=== PATIENT | female | born 1925 | race Caucasian/White ===

== ENCOUNTER 2016-10-23 13:03 | Emergency (ER) | payer MEDICARE, BC ==
[2010-07-23 14:01] VITALS: BMI 18.6
[2016-10-23 14:36] LABS: BASOPHILS 0.6 % (0-2); EOSINOPHILS 1.7 % (0-7); HEMOGLOBIN 13.6 g/dL (12-16); IMMATURE GRANULOCYTES 0.3 % (0-5); LYMPHOCYTES 15.4 % (15-50); MCH 29.4 pg (26.0-34.0); MCHC 31.6 g/dL (31.0-37.0); MCV 93.1 fL (80.0-100.0); MEAN PLATELET VOLUME 9.8 fL (7.4-10.4); MONOCYTES 12.6 % (2-11); NEUTROPHILS 69.4 % (40-80); RBC 4.62 10x6/uL (4.00-5.40); RDW 14.1 % (11.5-14.5); WBC 3.6 10x3/uL (4.8-10.8)
[2016-10-23 14:37] LABS: PLATELET COUNT 195 10x3/uL (130-400)
[2016-10-23 14:52] LABS: ALBUMIN 3.5 g/dL (3.4-5.0); ANION GAP 13.1 mmol/L (8-16); BILIRUBIN - TOTAL 0.4 mg/dL (0.2-1.3); CALCIUM 9.5 mg/dL (8.5-10.1); CARBON DIOXIDE 25.6 mmol/L (21.0-32.0); CREATININE - SERUM 1.3 mg/dL (0.6-1.3); POTASSIUM - SERUM 3.7 mmol/L (3.5-5.1); PROTEIN - SERUM 6.6 g/dL (6.4-8.2)
== END 2016-10-23 15:10 | disposition home or self-care (01) ==
LOC: D.ER 13:03
PROVIDERS: Nurse Practitioner Family
DX: B02.9 Zoster without complications (principal); R21 Rash and other nonspecific skin eruption

== ENCOUNTER 2016-12-09 18:55 | Emergency (ER) | payer MEDICARE, BC ==
[2010-07-23 14:01] VITALS: BMI 18.6
[2016-12-09 19:32] LABS: BASOPHILS 0.9 % (0-2); EOSINOPHILS 3.3 % (0-7); HEMOGLOBIN 11.8 g/dL (12-16); IMMATURE GRANULOCYTES 0.1 % (0-5); LYMPHOCYTES 22.9 % (15-50); MCH 30.3 pg (26.0-34.0); MCHC 31.9 g/dL (31.0-37.0); MCV 95.1 fL (80.0-100.0); MEAN PLATELET VOLUME 9.3 fL (7.4-10.4); MONOCYTES 10.3 % (2-11); NEUTROPHILS 62.5 % (40-80); RBC 3.89 10x6/uL (4.00-5.40); RDW 15.4 % (11.5-14.5); WBC 6.9 10x3/uL (4.8-10.8)
[2016-12-09 19:39] LABS: PLATELET COUNT 271 10x3/uL (130-400)
[2016-12-09 19:51] LABS: ALBUMIN 3.6 g/dL (3.4-5.0); BILIRUBIN - TOTAL 0.39 mg/dL (0.2-1.3); CALCIUM 8.8 mg/dL (8.5-10.1); CARBON DIOXIDE 27.7 mmol/L (21.0-32.0); POTASSIUM - SERUM 3.7 mmol/L (3.5-5.1); PROTEIN - SERUM 6.8 g/dL (6.4-8.2)
[2016-12-09 20:27] LABS: APPEARANCE CLEAR (CLEAR); BACTERIA FEW /hpf (NONE SEEN); BILIRUBIN NEGATIVE (NEGATIVE); COLOR YELLOW (YELLOW); EPITHELIAL CELLS 0-5 /hpf (0-5); GLUCOSE NEGATIVE (NEGATIVE); GRANULAR CAST RARE /lpf (NONE SEEN); HYALINE CAST 0-5 /lpf (NONE SEEN); KETONE NEGATIVE (NEGATIVE); LEUKOCYTE ESTERASE TRACE (NEGATIVE); MUCUS <1+ /lpf (NONE SEEN); NITRITE NEGATIVE (NEGATIVE); PROTEIN NEGATIVE (NEGATIVE); SPECIFIC GRAVITY 1.015 (1.005-1.020); UROBILINOGEN NORMAL (NORMAL); WAXY CAST OCC /lpf (NONE SEEN); WHITE CELLS - URINE 0-5 /hpf (0-5)
== END 2016-12-09 21:00 | disposition home or self-care (01) ==
LOC: D.ER 18:55
PROVIDERS: Emergency Medicine
DX: F03.90 Unspecified dementia, unspecified severity, without behavioral disturbance, psychotic disturbance, mood disturbance, and anxiety (principal); M54.9 Dorsalgia, unspecified; R41.82 Altered mental status, unspecified; R53.83 Other fatigue

== ENCOUNTER 2017-10-10 15:18 | Inpatient (IN) | payer MEDICARE, BC ==
[~2017-10-10] VITALS: Ht 157.5 cm; Wt 45.5 kg
--- NOTE | ~2017-10-10 | PN ---
PATIENT:TOMAS COLON MEDICAL RECORD: [id number] LOCATION:[facility]ell112 ADMISSION DATE: 10/10/17 PROGRESS NOTE DATE OF SERVICE: 10/13/2017 SUBJECTIVE: No new complaint is noted. OBJECTIVE: The patient did become nauseated and vomited after breakfast today. Aside from this, no new problems have arisen. On exam, mood is pleasant. Affect is shallow. Speech is tangential. Content of thought focuses primarily on somatic concerns. Sensorium shows no change. ASSESSMENT: No change in diagnosis. PLAN: 1. Reduce Aricept to 5 mg daily. 2. Continue other current medications and supportive therapy. TRANSINT:[id number] Voice Confirmation ID: [id number] DOCUMENT ID: [id number] RODRÍGUEZ MUHAMMAD III, MD at 0511 CC: [id number] DICTATION DATE: 10/13/17 1053 ASTROBIOLOGIST: 10/13/17 1102 ADM IN [address] [address] [place] [address]
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
--- NOTE | ~2017-10-10 | PN ---
PATIENT:TOMAS COLON MEDICAL RECORD: [id number] LOCATION:ANYA Snell112 ADMISSION DATE: 10/10/17 PROGRESS NOTE DATE OF SERVICE: 10/24/2017 SUBJECTIVE: No new complaint is noted. OBJECTIVE: The patient did receive p.r.n. last night for agitation. Aside from this, unremarkable weekend. On exam, mood is euthymic. Affect is reserved. Speech is tangential. Content of thought continues to exhibit delusional ideation. Sensorium shows no change. ASSESSMENT: No change in diagnosis. PLAN: 1. Maintain current medication. 2. Continue supportive therapy. TRANSINT:[id number] Voice Confirmation ID: [id number] DOCUMENT ID: [id number] RODRÍGUEZ MUHAMMAD III, MD at 1007 CC: [id number] DICTATION DATE: 10/24/17 1145 MANUFACTURING ANALYST: 10/24/17 1151 ADM IN [place] [address] [place] [id number]
--- NOTE | ~2017-10-10 | PN ---
PATIENT:TOMAS COLON MEDICAL RECORD: [id number] LOCATION:[facility] ADMISSION DATE: 10/10/17 PROGRESS NOTE DATE OF SERVICE: 10/21/2017 SUBJECTIVE: No new complaint. OBJECTIVE: The patient continues to show some liability of affect in the afternoons. She has been accepted by [facility]. We will continue to monitor and adjust medications as needed prior to discharge. On exam, mood is euthymic. Affect is somewhat childlike and brittle. Speech is tangential. Content of thought continues to exhibit delusional ideation due to sensorium changes. Sensorium itself is unchanged. ASSESSMENT: No change in diagnosis. PLAN: 1. Continue current medication. 2. Continue supportive therapy. TRANSINT:[id number] Voice Confirmation ID: [id number] DOCUMENT ID: [id number] RODRÍGUEZ MUHAMMAD III, MD at 1229 CC: [id number] DICTATION DATE: 10/21/17 1126 PLATING TANK OPERATOR: 10/21/17 1131 ADM IN [id number] [place] [address]
--- NOTE | ~2017-10-10 | PN ---
PATIENT:TOMAS COLON MEDICAL RECORD: [id number] LOCATION:ANYA Snell112 ADMISSION DATE: 10/10/17 PROGRESS NOTE DATE OF SERVICE: 10/25/2017 SUBJECTIVE: No new complaint. OBJECTIVE: The patient has been calm and cooperative. She is taking medications without difficulties. No outbursts of yelling. On exam, mood is pleasant and euthymic. Affect is bland. Speech is somewhat tangential. Content of thought unchanged. Sensorium unchanged. ASSESSMENT: No change in diagnosis. PLAN: 1. Continue current medications. 2. Anticipate discharge tomorrow. TRANSINT:[id number] Voice Confirmation ID: [id number] DOCUMENT ID: [id number] RODRÍGUEZ MUHAMMAD III, MD at 0951 CC: [id number] DICTATION DATE: 10/25/17 112 RADIO ENGINEERING TEACHER: 10/25/17 1311 ADM IN [facility] [address] [place] [id number]
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
--- NOTE | ~2017-10-10 | PN ---
PATIENT:TOMAS COLON MEDICAL RECORD: [id number] LOCATION:ANYA Snell112 ADMISSION DATE: 10/10/17 PROGRESS NOTE DATE OF SERVICE: 10/12/2017 SUBJECTIVE: No new complaint. OBJECTIVE: The patient was calmer last night. Staff note that she did sleep better. She did undergo neuropsychological testing with Dr. Gibbs yesterday. She showed very severe dementia, scoring only 3/30 on the [facility] Mental Status exam. On exam today, the patient's mood is pleasant and euthymic. Affect is shallow. Speech is tangential. Content of thought is negative for overt psychosis. The patient does show delusional ideation based on her profound dementia. She thinks her is coming to pick her up today. Sensorium is unchanged. ASSESSMENT: No change in diagnosis. PLAN: 1. Continue current treatment plan. 2. Continue supportive therapy. TRANSINT:[id number] Voice Confirmation ID: [id number] DOCUMENT ID: [id number] RODRÍGUEZ MUHAMMAD III, MD at 0515 CC: [id number] DICTATION DATE: 10/12/17 1132 SHOE CLEANER: 10/12/17 1253 ADM IN [facility] [address] [place] [address]
--- NOTE | ~2017-10-10 | PN ---
PATIENT:TOMAS COLON MEDICAL RECORD: [id number] LOCATION:ANYA ReddyWilfredo112 ADMISSION DATE: 10/10/17 PROGRESS NOTE DATE OF SERVICE: 10/14/2017 SUBJECTIVE: No new complaint. OBJECTIVE: The patient is overall improved. She remains engaging and conversant with staff and with other patients. She is taking medication as prescribed. On exam, mood is euthymic. Affect is pleasant. Speech is tangential. Content of thought is negative for overt psychosis. Sensorium unchanged. ASSESSMENT: No change in diagnosis. PLAN: 1. Continue current medication. 2. Continue supportive therapy. TRANSINT:[id number] Voice Confirmation ID: [id number] DOCUMENT ID: [id number] RODRÍGUEZ MUHAMMAD III, MD at 0553 CC: [id number] DICTATION DATE: 10/14/17 142 HOUSEHOLD COOK: 10/14/17 1447 ADM IN [place] [id number] [place] [id number]
--- NOTE | ~2017-10-10 | PN ---
PATIENT:TOMAS COLON MEDICAL RECORD: [id number] LOCATION:ANYA Snell112 ADMISSION DATE: 10/10/17 PROGRESS NOTE DATE OF SERVICE: 10/17/2017 SUBJECTIVE: No new complaint. OBJECTIVE: The patient is overall improved. She is participating to some degree in group activities. There have been no outbursts of agitation. On exam, mood is pleasant and euthymic. Affect is childlike. Speech tends to be tangential. Content of thought is negative for overt psychosis. Sensorium unchanged. ASSESSMENT: No change in diagnosis. PLAN: 1. Maintain current medication. 2. Continue supportive therapy. TRANSINT:[id number] Voice Confirmation ID: [id number] DOCUMENT ID: [id number] RODRÍGUEZ MUHAMMAD III, MD at 1133 CC: [id number] DICTATION DATE: 10/17/17 1244 SOFTWARE IMPLEMENTATION PROJECT MANAGER: 10/17/17 1407 ADM IN [facility] [address] [place] [address]
--- NOTE | ~2017-10-10 | PN ---
PATIENT:TOMAS COLON MEDICAL RECORD: [id number] LOCATION:ANYA ReddyWilfredo112 ADMISSION DATE: 10/10/17 PROGRESS NOTE DATE OF SERVICE: 10/19/2017 SUBJECTIVE: No new complaint. OBJECTIVE: The patient has been fairly cooperative. She is sleeping better. She is taking medications as prescribed. On exam, mood is slightly anxious. Affect is bland. Speech is tangential and circumstantial. Content of thought shows delusional ideations due to sensorium deficits. Sensorium itself is unchanged. ASSESSMENT: No change in diagnosis. PLAN: 1. Continue current medication. 2. Continue supportive therapy. TRANSINT:[id number] Voice Confirmation ID: [id number] DOCUMENT ID: [id number] RODRÍGUEZ MUHAMMAD III, MD at 1829 CC: [id number] DICTATION DATE: 10/19/17 1117 DELINQUENT TAX COLLECTOR ASSISTANT: 10/19/17 1135 ADM IN [facility] [address] [place] [address]
--- NOTE | ~2017-10-10 | PN ---
PATIENT:TOMAS COLON MEDICAL RECORD: [id number] LOCATION:ANYA Snell112 ADMISSION DATE: 10/10/17 PROGRESS NOTE DATE OF SERVICE: 10/20/2017 SUBJECTIVE: No new complaint. OBJECTIVE: The patient continues to show somewhat expansive affect. She continues to show confusion and agitation later in the day. She is cooperative earlier in the day. On exam, mood is elevated. Affect is expansive and childlike. Speech is slightly pressured. Content of thought still positive for delusional ideation. The patient thinks her is coming to pick her up. Sensorium is unchanged. ASSESSMENT: No change in diagnosis. PLAN: 1. Change perphenazine to 4 mg at 1800 daily. 2. Continue other current medication. 3. Continue supportive therapy. TRANSINT:[id number] Voice Confirmation ID: [id number] DOCUMENT ID: [id number] RODRÍGUEZ MUHAMMAD III, MD at 1912 CC: [id number] DICTATION DATE: 10/20/17 1033 SQUEEGEER AND FORMER: 10/20/17 1053 ADM IN [facility] [address] [place] [id number]
--- NOTE | ~2017-10-10 | PN ---
PATIENT:TOMAS COLON MEDICAL RECORD: [id number] LOCATION:ANYA Snell112 ADMISSION DATE: 10/10/17 PROGRESS NOTE DATE OF SERVICE: 10/22/2017 SUBJECTIVE: No new complaint. OBJECTIVE: The patient continues to be delusional. She maintains that her is alive and is coming to pick her up. On exam, mood is slightly elevated. Affect is childlike. Speech is rambling. Content of thought is delusional as noted above. Sensorium shows no change. ASSESSMENT: No change in diagnosis. PLAN: 1. Continue current medication. 2. Continue supportive therapy. TRANSINT:[id number] Voice Confirmation ID: [id number] DOCUMENT ID: [id number] RODRÍGUEZ MUHAMMAD III, MD at 1012 CC: [id number] DICTATION DATE: 10/22/17 0711 HEAD LINEMAN: 10/22/17 0909 ADM IN [facility] [address] [place] [address]
--- NOTE | ~2017-10-10 | PN ---
PATIENT:TOMAS COLON MEDICAL RECORD: [id number] LOCATION:ANYA Alis112 ADMISSION DATE: 10/10/17 PROGRESS NOTE DATE OF SERVICE: 10/18/2017 SUBJECTIVE: No new complaint. OBJECTIVE: The patient continues to have episodes of agitation and yelling and has to be redirected from this. On exam, mood is somewhat elevated. Affect is brittle. Speech is repetitive. Content of thought is delusional. The patient continues to state that her is coming to pick her up. Sensorium is unchanged. ASSESSMENT: No change in diagnosis. PLAN: 1. We will advance neuroleptics as indicated. 2. Continue other current medications. 3. Continue supportive therapy. TRANSINT:[id number] Voice Confirmation ID: [id number] DOCUMENT ID: [id number] RODRÍGUEZ MUHAMMAD III, MD at 1019 CC: [id number] DICTATION DATE: 10/18/17 1150 AIR DEFENSE SPECIALIST: 10/18/17 1205 ADM IN [id number] [place] [address]
[2017-10-10 16:03] LABS: BASOPHILS 1.2 % (0-2); EOSINOPHILS 3.6 % (0-7); HEMATOCRIT 41.8 % (36.0-48.0); HEMOGLOBIN 13.4 g/dL (12-16); IMMATURE GRANULOCYTES 0.2 % (0-5); LYMPHOCYTES 31.7 % (15-50); MCH 29.7 pg (26.0-34.0); MCHC 32.1 g/dL (31.0-37.0); MCV 92.7 fL (80.0-100.0); MEAN PLATELET VOLUME 9.6 fL (7.4-10.4); MONOCYTES 8.1 % (2-11); NEUTROPHILS 55.2 % (40-80); PLATELET COUNT 276 10x3/uL (130-400); RBC 4.51 10x6/uL (4.00-5.40); RDW 14.7 % (11.5-14.5); WBC 5.2 10x3/uL (4.8-10.8)
[2017-10-10 16:05] LABS: APPEARANCE CLEAR (CLEAR); BILIRUBIN NEGATIVE (NEGATIVE); COLOR YELLOW (YELLOW); GLUCOSE NEGATIVE (NEGATIVE); KETONE NEGATIVE (NEGATIVE); NITRITE NEGATIVE (NEGATIVE); PROTEIN NEGATIVE (NEGATIVE); UDS - AMPHET NEGATIVE QUAL (NEGATIVE); UDS - BARB NEGATIVE QUAL (NEGATIVE); UDS - BENZO NEGATIVE QUAL (NEGATIVE); UDS - COCAINE NEGATIVE QUAL (NEGATIVE); UDS - OPIATE NEGATIVE QUAL (NEGATIVE); UDS - PCP NEGATIVE QUAL (NEGATIVE); UDS - THC NEGATIVE QUAL (NEGATIVE); UROBILINOGEN NORMAL (NORMAL)
[2017-10-10 16:06] LABS: BACTERIA FEW /hpf (NONE SEEN); EPITHELIAL CELLS 0-5 /hpf (0-5); RED CELLS - URINE 0-5 /hpf (0-5); WHITE CELLS - URINE OCC /hpf (0-5)
[2017-10-10 16:26] LABS: BILIRUBIN - TOTAL 0.4 mg/dL (0.2-1.3); CALCIUM 9.1 mg/dL (8.5-10.1); CARBON DIOXIDE 27.8 mmol/L (21.0-32.0); POTASSIUM - SERUM 3.8 mmol/L (3.5-5.1); PROTEIN - SERUM 7.1 g/dL (6.4-8.2)
[2017-10-11 08:26] VITALS: BMI 18.3
[2017-10-11 08:47] LABS: CHOL - HDL RATIO 5.3 ratio (2.3-4.1); LDL-HDL RATIO 3.3 ratio (1.5-3.5); THYROID STIMULATING HORMONE 2.18 uIU/mL (0.36-3.74)
[2017-10-11 09:33] VITALS: BP 150/80
[2017-10-11 14:33] VITALS: BMI 18.3
[2017-10-11 20:20] VITALS: BP 150/80; Ht 157.5 cm; Wt 45.5 kg
[2017-10-12 07:30] LABS: RAPID PLASMA REAGIN Non Reactive (Non Reactive)
[2017-10-12 08:23] LABS: FOLATE (FOLIC ACID) - SERUM 13.6 ng/mL (>3.0)
[2017-10-12 10:22] LABS: VITAMIN D 25 HYDROXY 22.6 ng/mL (30.0-100.0)
[2017-10-12 11:57] VITALS: BP 174/100
[2017-10-12 19:45] VITALS: BP 132/63
[2017-10-13 07:30] VITALS: BP 173/96
[2017-10-13] MEDS ORDERED: PRINIVIL10 MG PO (13:46)
[2017-10-13] MEDS ORDERED: MELOXICAM TAB 15M PO (13:50)
[2017-10-13 19:24] VITALS: BP 136/69
[2017-10-14 08:12] VITALS: BP 128/74
[2017-10-14 19:41] VITALS: BP 127/84
[2017-10-15 08:03] VITALS: BP 114/68
[2017-10-15 19:09] VITALS: BP 132/58
[2017-10-16 08:24] VITALS: BP 150/89
[2017-10-16 19:09] VITALS: BP 130/65
[2017-10-17 10:28] VITALS: BP 137/99
[2017-10-18 10:15] VITALS: BP 169/79
[2017-10-18 19:38] VITALS: BP 154/83
[2017-10-19 08:31] VITALS: BP 160/83
[2017-10-19 19:32] VITALS: BP 157/77
[2017-10-20 08:10] VITALS: BP 140/50
[2017-10-20 19:08] VITALS: BP 153/64
[2017-10-21 07:44] VITALS: BP 135/76
[2017-10-22 11:48] VITALS: BP 153/105
[2017-10-22 19:33] VITALS: BP 158/65
[2017-10-23 07:00] VITALS: BP 144/77
[2017-10-23 20:11] VITALS: BP 115/66
[2017-10-24 07:00] VITALS: BP 126/90
[2017-10-24 19:39] VITALS: BP 124/58
[2017-10-25 09:08] VITALS: BP 148/69
[2017-10-25] MEDS ORDERED: MEGACE40 MG PO (14:45)
[2017-10-25] MEDS ORDERED: ARICEPT5 MG PO (14:45)
[2017-10-25] MEDS ORDERED: MOBIC7.5 MG PO (14:46)
[2017-10-25] MEDS ORDERED: ASPERCREME 5 OZ5 OZ TP (14:46)
[2017-10-25] MEDS ORDERED: PERPHENAZINE2 MG PO (14:46)
[2017-10-25] MEDS ORDERED: VITAMIN B-121000 MCG PO (14:46)
[2017-10-25] MEDS ORDERED: VITAMIN D5000 UNIT PO (14:46)
[2017-10-25 19:36] VITALS: BP 122/60
[2017-10-26 10:02] VITALS: BP 125/82
== END 2017-10-26 12:43 | DRG 57 ==
LOC: D.ER 15:18 → D.PSYCH 20:05 → D.EDHOLD 20:05 → D.PSYCH 20:27
PROVIDERS: Family Medicine; Psychiatry & Neurology Psychiatry
DX: G30.9 Alzheimer's disease, unspecified (principal); F02.81 Dementia in other diseases classified elsewhere, unspecified severity, with behavioral disturbance; Z68.1 Body mass index [BMI] 19.9 or less, adult; E78.00 Pure hypercholesterolemia, unspecified; E78.5 Hyperlipidemia, unspecified; I10 Essential (primary) hypertension; E03.9 Hypothyroidism, unspecified; M81.0 Age-related osteoporosis without current pathological fracture; R63.6 Underweight; Z91.81 History of falling; F41.9 Anxiety disorder, unspecified; E55.9 Vitamin D deficiency, unspecified; N32.81 Overactive bladder